=== PATIENT | male | born 1965 | race Hispanic/Latino ===

== ENCOUNTER 2018-10-15 14:26 | Emergency (ER) | payer BC, MEDICARE ==
[2018-10-15 14:26] VITALS: BMI 38.2
[2018-10-15 14:57] VITALS: O2SAT 99
--- NOTE | 2018-10-15 16:03 | C.PDOC ---
History Of Present Illness Patient is a 52 y/o male with a PMHx of schizoaffective disorder and bipolar disorder, currently residing in skilled nursing, sent in by his day center due to complaints of either right-sided back pain or right arm pain unclear on arrival. Initially upon arrival to the ED, patient is walking bent over, guarding his right side. Patient is poorly verbal on initial exam. He is unable to answer any questions. Also unable to describe complaint. Time Seen by Provider: 10/15/18 16:00 Chief Complaint (Nursing): Back Pain History Per: Patient History/Exam Limitations: other (Poorly verbal) Onset/Duration Of Symptoms: Unknown Past Medical History Reviewed: Historical Data, Nursing Documentation, Vital Signs Vital Signs: Last Vital Signs Temp 98.2 F 10/15/18 14:30 Pulse 68 10/15/18 14:30 Resp 20 10/15/18 14:30 BP 100/65 10/15/18 14:30 Pulse Ox 99 10/15/18 14:30 - Medical History PMH: Bipolar Disorder, Depression, HTN, Schizophrenia Denies: Alzheimer's Disease, Anemia, Anxiety, Arthritis, Asthma, Bronchitis, Cardia Arrhythmia, CHF, COPD, Crohn's Disease, Dementia, Diabetes, Diverticulitis, Emphysema, Fibromyalgia, Fractures, Gastrointestinal Ulcer, Gall Bladder Disease, Hepatitis, HIV, Hypercholesterolemia, Hyperthyroidism, Hypothyroidism, Kidney Stones, Migraine, Mitral Valve Prolapse, Osteoporosis, Pancreatitis, Paranoia, Parkinson's Disease, Peripheral Edema, Personality Disorder, Pneumonia, Post Traumatic Stress Disorder, Chronic Kidney Disease, Seizures, Sickle Cell Disease, Sexually Transmitted Disease, Sleep Apnea, TIA Surgical History: Denies: Appendectomy, Cholecystectomy, Coronary Stent, Pacemaker - [facility] Procedures CLOSURE SKIN & SUBCUTANEOUS NEC (07/14/04) INJECT/INFUSE NEC (10/31/06) MAGNETIC RESONANCE IMAGING OF BRAIN AND BRAIN STEM (01/01/14) MEDICATION MANAGEMENT (04/12/16) PSYCHIAT DRUG THERAP NEC (01/01/14) TETANUS TOXOID ADMINIST (10/31/06) Family History: States: Unknown Family Hx - Social History Hx Tobacco Use: No Hx Alcohol Use: No Hx Substance Use: No - Immunization History Hx Tetanus Toxoid Vaccination: No Hx Influenza Vaccination: No Hx Pneumococcal Vaccination: No Review Of Systems Review Of Systems: ROS cannot be obtained secondary to pt's inabilty to answer questions. Physical Exam - Physical Exam Appears: Non-toxic, No Acute Distress, Other (groggy appearing but responsive) Skin: Warm, Dry Head: Atraumatic, Normacephalic Eye(s): bilateral: PERRL, EOMI, Other (Pupils dilated) Oral Mucosa: Moist Neck: Normal ROM Chest: Symmetrical Cardiovascular: Rhythm Regular, No Murmur Respiratory: Normal Breath Sounds, No Accessory Muscle Use Gastrointestinal/Abdominal: Soft, No Tenderness, No Distention Back: Normal Inspection, No CVA Tenderness, No Vertebral Tenderness Extremity: Bilateral: Atraumatic, Normal Color And Temperature Pulses: Left Radial: Normal, Right Radial: Normal Neurological/Psych: Other (awake, alert, but poorly verbal on initial exam) ED Course And Treatment O2 Sat by Pulse Oximetry: 99 (RA) Pulse Ox Interpretation: Normal - Physician Consult Information Physician Contacted: Irma Maurer Outcome Of Conversation: Discussed with patients PMD and a nurse from skilled nursing, who state patient is intermittently lucid. On further evaluation, patient is speaking and denies any pain at this time. He states he occasionally has back pain. Denies any SOB, dysuria, hematuria, nausea, vomiting. Medical Decision Making Medical Decision Making: Plan: On further discussion, patient has no acute complaints and is stable for d/c back to his skilled nursing. Disposition - Disposition Disposition: HOME/ ROUTINE Disposition Time: 17:18 Condition: GUARDED Additional Instructions: Patient ambulating without difficulty in the ED. Denies pain at this time. States pain to his back "occasionally". Follow up with your primary care provider, Forms: [employer] (Ugandan), General Discharge Instructions - Clinical Impression Clinical Impression: Chronic pain disorder - Scribe Statement The provider has reviewed the documentation as recorded by the Bonita Simms Provider Attestation: All medical record entries made by the Bonita were at my direction and personally dictated by me. I have reviewed the chart and agree that the record accurately reflects my personal performance of the history, physical exam, medical decision making, and the department course for this patient. I have also personally directed, reviewed, and agree with the discharge instructions and disposition.
[2018-10-15 17:38] VITALS: BP 110/70; PULSE 70; RESP 18; TEMP 98.8
== END 2018-10-15 18:31 | disposition home or self-care (01) ==
LOC: C.ER 14:26
DX: G89.29 Other chronic pain (principal)

== ENCOUNTER 2018-11-06 13:44 | Emergency (ER) | payer MEDICARE ==
[2018-11-06 13:44] VITALS: BMI 38.2
[2018-11-06 14:19] VITALS: RESP 16; O2SAT 98
[2018-11-06] MEDS ORDERED: Sodium Chloride 0.9% 1,000 ML IV ONE ×2 (15:00→17:02)
--- NOTE | 2018-11-06 15:20 | C.PDOC ---
History Of Present Illness 53 y/o male, with history of schizoaffective disorder and bipolar disorder, is sent here from [facility], where he lives, after a suggested questionable right-sided weakness and slurred speech. On arrival, patient had equal arm and leg movements and speech is garbled but this is patients baseline. Patient looks sleepy and doesnt answer questions. Patient is a poor historian. Rest of HPI is limited. Time Seen by Provider: 11/06/18 14:44 Chief Complaint (Nursing): Weakness/Neurological Deficit History Per: Patient History/Exam Limitations: no limitations Onset/Duration Of Symptoms: Days Current Symptoms Are (Timing): Still Present Past Medical History Reviewed: Historical Data, Nursing Documentation, Vital Signs Vital Signs: Last Vital Signs Temp Pulse 78 11/06/18 14:17 Resp 16 11/06/18 14:17 BP 121/48 L 11/06/18 14:17 Pulse Ox 98 11/06/18 14:17 - Medical History PMH: Bipolar Disorder, Depression, HTN, Schizophrenia Denies: Alzheimer's Disease, Anemia, Anxiety, Arthritis, Asthma, Bronchitis, Cardia Arrhythmia, CHF, COPD, Crohn's Disease, Dementia, Diabetes, Diverticulitis, Emphysema, Fibromyalgia, Fractures, Gastrointestinal Ulcer, Gall Bladder Disease, Hepatitis, HIV, Hypercholesterolemia, Hyperthyroidism, Hypothyroidism, Kidney Stones, Migraine, Mitral Valve Prolapse, Osteoporosis, Pancreatitis, Paranoia, Parkinson's Disease, Peripheral Edema, Personality Disorder, Pneumonia, Post Traumatic Stress Disorder, Chronic Kidney Disease, Seizures, Sickle Cell Disease, Sexually Transmitted Disease, Sleep Apnea, TIA Surgical History: Denies: Appendectomy, Cholecystectomy, Coronary Stent, Pacemaker - [facility] Procedures CLOSURE SKIN & SUBCUTANEOUS NEC (07/14/04) INJECT/INFUSE NEC (10/31/06) MAGNETIC RESONANCE IMAGING OF BRAIN AND BRAIN STEM (01/01/14) MEDICATION MANAGEMENT (04/12/16) PSYCHIAT DRUG THERAP NEC (01/01/14) TETANUS TOXOID ADMINIST (10/31/06) Family History: States: No Known Family Hx - Social History Hx Tobacco Use: No Hx Alcohol Use: No Hx Substance Use: No - Immunization History Hx Tetanus Toxoid Vaccination: No Hx Influenza Vaccination: No Hx Pneumococcal Vaccination: No Review Of Systems Review Of Systems: ROS cannot be obtained secondary to pt's inabilty to answer questions. Physical Exam - Physical Exam Appears: Non-toxic, No Acute Distress Skin: Warm, Dry Head: Atraumatic, Normacephalic Eye(s): bilateral: Normal Inspection, PERRL, EOMI Oral Mucosa: Dry Neck: Supple Cardiovascular: Rhythm Regular, No Murmur Respiratory: Normal Breath Sounds, No Rales, No Rhonchi, No Wheezing Gastrointestinal/Abdominal: Soft, No Tenderness Extremity: Bilateral: Atraumatic, Normal Color And Temperature, Other (slowly moves all extremities) Neurological/Psych: Oriented x3, Other (Grasp is equal) ED Course And Treatment - Laboratory Results Result Diagrams: 11/06/18 16:28 11/06/18 16:28 Lab Interpretation: Abnormal (WBC 4.3, plt 85, BUN 24, Cr 1.1, HCO3 31, Glucose 115,) ECG: Interpreted By Ct ECG Rhythm: Sinus Rhythm ECG Interpretation: No Acute Changes O2 Sat by Pulse Oximetry: 98 (RA) Pulse Ox Interpretation: Normal - CT Scan/US Head CT Other Rad Studies (CT/US): Read By Radiologist, Radiology Report Reviewed CT/US Interpretation: FINDINGS: HEMORRHAGE: No intracranial hemorrhage. BRAIN: No mass effect or edema. 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 No evidence of acute infarct. Minimal periventricular white matter lucency adjacent to the frontal horns of the lateral ventricles consistent with chronic microvascular ischemic change. VENTRICLES: Unremarkable. No hydrocephalus. CALVARIUM: Unremarkable. PARANASAL SINUSES: Unremarkable as visualized. No significant inflammatory changes. MASTOID AIR CELLS: Unremarkable as visualized. No inflammatory changes. OTHER FINDINGS: None. IMPRESSION: No intracranial mass, hemorrhage or evidence of acute infarct. Old left thalamic lacune. Old right pontine lacune. Minimal chronic white matter ischemic change. Progress Note: Patient treated with IV fluids. Reevaluation Time: 18:02 Reassessment Condition: Improved Medical Decision Making Medical Decision Making: Plan: --Head CT --EKG --Bloodwork --IV fluids --UA Patients physical appearance is consistent when he was seen here in ER last month. Disposition Counseled Patient/Family Regarding: Studies Performed, Diagnosis, Need For Followup - Disposition Disposition: HOME/ ROUTINE Disposition Time: 18:06 Condition: IMPROVED Instructions: Dehydration, Adult (DC), Schizoaffective Disorder Forms: [employer] (Persian) - Clinical Impression Clinical Impression: Schizoaffective disorder, Mild dehydration - Scribe Statement The provider has reviewed the documentation as recorded by the Scribe Tana Stewart Provider Attestation: All medical record entries made by the Scribe were at my direction and personally dictated by me. I have reviewed the chart and agree that the record accurately reflects my personal performance of the history, physical exam, medical decision making, and the department course for this patient. I have also personally directed, reviewed, and agree with the discharge instructions and disposition.
--- NOTE | 2018-11-06 15:51 | CT ---
Date of service: 11/06/2018 PROCEDURE: CT HEAD WITHOUT CONTRAST. HISTORY: AMS COMPARISON: None available. TECHNIQUE: Axial computed tomography images were obtained through the head/brain without intravenous contrast. Radiation dose: Total exam DLP = 1002.09 mGy-cm. This CT exam was performed using one or more of the following dose reduction techniques: Automated exposure control, adjustment of the mA and/or kV according to patient size, and/or use of iterative reconstruction technique. FINDINGS: HEMORRHAGE: No intracranial hemorrhage. BRAIN: No mass effect or edema. 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 No evidence of acute infarct. Minimal periventricular white matter lucency adjacent to the frontal horns of the lateral ventricles consistent with chronic microvascular ischemic change. VENTRICLES: Unremarkable. No hydrocephalus. CALVARIUM: Unremarkable. PARANASAL SINUSES: Unremarkable as visualized. No significant inflammatory changes. MASTOID AIR CELLS: Unremarkable as visualized. No inflammatory changes. OTHER FINDINGS: None. IMPRESSION: No intracranial mass, hemorrhage or evidence of acute infarct. Old left thalamic lacune. Old right pontine lacune. Minimal chronic white matter ischemic change.
[2018-11-06 16:33] LABS: BASO % 0.3 % (0.0-2.0); EOS % 0.3 % (0.0-4.0); HEMOGLOBIN 11.3 g/dL (12.0-18.0); LYMPH # 0.7 K/uL (1.0-4.3); LYMPH % 15.4 % (20.0-40.0); MEAN CELL VOLUME 96.6 fL (80.0-94.0); MEAN CORPUSCULAR HEMOGLOBIN 33.1 pg (27.0-31.0); MEAN CORPUSCULAR HGB CONC 34.2 g/dL (33.0-37.0); MONO # 0.4 K/uL (0.0-0.8); NEUT # 3.2 K/uL (1.8-7.0); RBC 3.41 Mil/uL (4.40-5.90); RED CELL DISTRIBUTION WIDTH 13.7 % (11.5-14.5); WHITE BLOOD COUNT 4.3 K/uL (4.8-10.8)
[2018-11-06 16:57] LABS: ALB/GLOB RATIO 1.1 (1.0-2.1); ALBUMIN 3.4 g/dL (3.5-5.0); ALT/SGPT 34 U/L (21-72); AST/SGOT 55 U/L (17-59); BLOOD UREA NITROGEN 24 mg/dL (9-20); CALCIUM 8.6 mg/dl (8.6-10.4); GFR NON-AFRICAN AMERICAN > 60
[2018-11-06 17:27] LABS: SQUAMOUS EPITHIAL < 1 /hpf (0-5); URINE BILIRUBIN NEGATIVE (NEGATIVE); URINE BLOOD NEGATIVE (NEGATIVE); URINE CLARITY Clear (Clear); URINE COLOR Yellow (YELLOW); URINE GLUCOSE (UA) NORMAL (Normal); URINE LEUKOCYTE ESTERASE NEG Leu/uL (Negative); URINE PROTEIN NEGATIVE (NEGATIVE)
[2018-11-06 17:36] LABS: BARBITURATES, UR NEGATIVE (NEGATIVE); BENZODIAZEPINES, UR NEGATIVE (NEGATIVE); OPIATES, UR NEGATIVE (NEGATIVE); PHENCYCLIDINE, UR NEGATIVE (NEGATIVE)
[2018-11-06 20:37] VITALS: BP 149/77; PULSE 79
--- NOTE | 2018-11-07 23:19 | CARD ---
APPROVED REPORT Date of service: 11/06/2018 EKG Measurement Heart [id number] IN 150P62 [id number] <Conclusion> Normal sinus rhythm with sinus arrhythmia Nonspecific ST and T wave abnormality Abnormal ECG
== END 2018-11-06 19:49 | disposition home or self-care (01) ==
LOC: C.ER 13:44
DX: F25.9 Schizoaffective disorder, unspecified (principal); E86.0 Dehydration
CPT/HCPCS: 70450; 80053; 81001; 82948; 85025; 93005; 99285; G0480

== ENCOUNTER 2019-03-13 11:51 | Emergency (ER) | payer BC, MEDICARE ==
[2019-03-13 12:01] VITALS: BMI 32.3
--- NOTE | 2019-03-13 12:08 | C.PDOC ---
History Of Present Illness Patient is a 53 year old male, with a PMHx of schizoaffective disorder, who is brought in by [facility] for belligerent behavior. Upon arrival, patient is combative with staff and threatening them. Patient was recently [place] [facility] [place] Patient is restrained for his safety. <Papito Chawla - Last Filed: 03/13/19 18:23> History Per: Patient History/Exam Limitations: no limitations Suicide/Self Injury Attempted (Context): None Associated Symptoms: denies: Suicidal Thoughts, Suicidal Plan Recent travel outside of the [place]: No Additional History Per: Patient, Law Enforcement <Papito Chawla - Last Filed: 03/13/19 18:23> <Kailey Haque - Last Filed: 03/14/19 00:19> Time Seen by Provider: 03/13/19 12:00 Chief Complaint (Nursing): Psychiatric Evaluation Past Medical History Reviewed: Historical Data, Nursing Documentation, Vital Signs Vital Signs: Last Vital Signs Temp 97.6 F 03/13/19 11:57 Pulse 86 03/13/19 11:57 Resp 18 03/13/19 11:57 BP 149/89 03/13/19 11:57 Pulse Ox 100 03/13/19 11:57 - Medical History PMH: Bipolar Disorder, Depression, HTN, Hypercholesterolemia, Hyperlipidemia, Hypothyroidism, Schizophrenia Denies: Alzheimer's Disease, Anemia, Anxiety, Arthritis, Asthma, Bronchitis, Cardia Arrhythmia, CHF, COPD, Crohn's Disease, Dementia, Diabetes, Diverticulitis, Emphysema, Fibromyalgia, Fractures, Gastrointestinal Ulcer, Gall Bladder Disease, Hepatitis, HIV, Hyperthyroidism, Kidney Stones, Migraine, Mitral Valve Prolapse, Osteoporosis, Pancreatitis, Paranoia, Parkinson's Disease, Peripheral Edema, Personality Disorder, Pneumonia, Post Traumatic Stress Disorder, Chronic Kidney Disease, Seizures, Sickle Cell Disease, Sexually Transmitted Disease, Sleep Apnea, TIA Surgical History: No Surg Hx Denies: Appendectomy, Cholecystectomy, Coronary Stent, Pacemaker - [facility] Procedures CLOSURE SKIN & SUBCUTANEOUS NEC (07/14/04) INJECT/INFUSE NEC (10/31/06) MAGNETIC RESONANCE IMAGING OF BRAIN AND BRAIN STEM (01/01/14) MEDICATION MANAGEMENT (04/12/16) PSYCHIAT DRUG THERAP NEC (01/01/14) TETANUS TOXOID ADMINIST (12/27/06) Family History: States: No Known Family Hx - Social History Hx Tobacco Use: No Hx Alcohol Use: Yes (unknown what and how much) Hx Substance Use: (unknown, answers incoherantly) - Immunization History Hx Tetanus Toxoid Vaccination: No Hx Influenza Vaccination: No Hx Pneumococcal Vaccination: No <Papito Chawla - Last Filed: 03/13/19 18:23> Vital Signs: Last Vital Signs Temp 98 F 03/13/19 17:37 Pulse 70 03/13/19 17:37 Resp 18 03/13/19 17:37 BP 138/79 03/13/19 17:37 Pulse Ox 100 03/13/19 18:24 - [facility] Procedures CLOSURE SKIN & SUBCUTANEOUS NEC (07/14/04) INJECT/INFUSE NEC (10/31/06) MAGNETIC RESONANCE IMAGING OF BRAIN AND BRAIN STEM (01/01/14) MEDICATION MANAGEMENT (04/12/16) PSYCHIAT DRUG THERAP NEC (01/01/14) TETANUS TOXOID ADMINIST (10/31/06) <Kailey Haque - Last Filed: 03/14/19 00:19> Review Of Systems Except As Marked, All Systems Reviewed And Found Negative. Constitutional: Positive for: Other (belligerant behavior ) Psych: Negative for: Suicidal ideation, Other (HI) <Papito Chawla - Last Filed: 03/13/19 18:23> Physical Exam - Physical Exam Appears: Non-toxic, Other (bizarre behavior) Skin: Normal Color, Warm, Dry Head: Atraumatic, Normacephalic Oral Mucosa: Moist Neck: Normal ROM, Supple Chest: Symmetrical, No Deformity Cardiovascular: Rhythm Regular, No Murmur Respiratory: Normal Breath Sounds, No Rales, No Rhonchi, No Wheezing Gastrointestinal/Abdominal: Soft, No Tenderness Neurological/Psych: Other (nonsensible speech) <Papito Chawla - Last Filed: 03/13/19 18:23> ED Course And Treatment - Laboratory Results Result Diagrams: 03/13/19 12:40 03/13/19 12:40 ECG: Interpreted By Me, Viewed By Me ECG Rhythm: Sinus Rhythm Interpretation Of ECG: Poor tracing secondary to artifact Rate From EC O2 Sat by Pulse Oximetry: 100 (on RA) Pulse Ox Interpretation: Normal - Other Rad CXR X-Ray: Viewed By Me, Read By Radiologist Interpretation: Date of service: 03/13/2019. PROCEDURE: CHEST RADIOGRAPH, 1 VIEW. HISTORY: Detox/Psy. COMPARISON: 03/28/2016. FINDINGS: LUNGS: Clear. PLEURA: No pneumothorax or pleural fluid seen. CARDIOVASCULAR: No aortic atherosclerotic calcification present. Normal. OSSEOUS STRUCTURES: No significant abnormalities. VISUALIZED UPPER ABDOMEN: Normal. OTHER FINDINGS: None. IMPRESSION: No active disease. <Papito Chawla - Last Filed: 03/13/19 18:23> - Laboratory Results Result Diagrams: 03/13/19 12:40 03/13/19 12:40 Lab Results: Total Bilirubin 0.8 mg/dL (0.2-1.3) 03/13/19 12:40 AST 27 U/L (17-59) 03/13/19 12:40 ALT 21 U/L (21-72) D 03/13/19 12:40 Alkaline Phosphatase 83 U/L (38-126) 03/13/19 12:40 Total Protein 7.9 g/dL (6.3-8.3) 03/13/19 12:40 Albumin 4.4 g/dL (3.5-5.0) 03/13/19 12:40 Globulin 3.5 gm/dL (2.2-3.9) 03/13/19 12:40 Albumin/Globulin Ratio 1.3 (1.0-2.1) 03/13/19 12:40 Urine Color Straw (YELLOW) 03/13/19 12:52 Urine Clarity Clear (Clear) 03/13/19 12:52 Urine pH 7.0 (5.0-8.0) 03/13/19 12:52 Ur Specific [place] 1.003 (1.003-1.030) 03/13/19 12:52 Urine Protein Negative mg/dL (NEGATIVE) 03/13/19 12:52 Urine Glucose (UA) Normal mg/dL (Normal) 03/13/19 12:52 Urine Ketones Negative mg/dL (NEGATIVE) 03/13/19 12:52 Urine Blood Negative (NEGATIVE) 03/13/19 12:52 Urine Nitrate Negative (NEGATIVE) 03/13/19 12:52 Urine Bilirubin Negative (NEGATIVE) 03/13/19 12:52 Urine Urobilinogen Normal mg/dL (0.2-1.0) 03/13/19 12:52 Ur Leukocyte Esterase Neg Az/uL (Negative) 03/13/19 12:52 Urine RBC (Auto) < 1 /hpf (0-3) 03/13/19 12:52 Ur Squamous Epith Cells < 1 /hpf (0-5) 03/13/19 12:52 <Kailey Haque - Last Filed: 03/14/19 00:19> Medical Decision Making Medical Decision Making: pending medical clearance. Plan: EKG Labs CXR UA Ativan 2mg IM Geodon 20mg IM 13:06. Patient is medically cleared. 1800:[place] [facility] [place] [facility] [place]: pt signed out dr solis [place] [facility] [place]reassess, final dispo. repeat ekg (inital one artifact), nsr [address] t wave changes normal intervals <Papito Chawla - Last Filed: 03/13/19 18:23> Disposition - Disposition Disposition Time: 19:00 <Papito Chawla - Last Filed: 03/13/19 18:23> <Kailey Haque - Last Filed: 03/14/19 00:19> - Disposition Condition: STABLE Forms: [employer] (Tajik) - Clinical Impression Clinical Impression: Schizophrenia - Scribe Statement The provider has reviewed the documentation as recorded by the Scribchey Bonilla All medical record entries made by the Scribe were at my direction and personally dictated by me. I have reviewed the chart and agree that the record accurately reflects my personal performance of the history, physical exam, medical decision making, and the department course for this patient. I have also personally directed, reviewed, and agree with the discharge instructions and disposition. <Papito Chawla - Last Filed: 03/13/19 18:23> Addendum Addendum: 03/13/19 21:05 Patient resting comfortably. He has been [place] [facility] [place] - pending bed. 03/14/19 00:19 Bed available at [facility] pending transfer. <Kailey Haque - Last Filed: 03/14/19 00:19>
--- NOTE | 2019-03-13 12:19 | RAD ---
Date of service: 03/13/2019 PROCEDURE: CHEST RADIOGRAPH, 1 VIEW HISTORY: Detox/Psy COMPARISON: 03/28/2016 FINDINGS: LUNGS: Clear. PLEURA: No pneumothorax or pleural fluid seen. CARDIOVASCULAR: No aortic atherosclerotic calcification present. Normal. OSSEOUS STRUCTURES: No significant abnormalities. VISUALIZED UPPER ABDOMEN: Normal. OTHER FINDINGS: None. IMPRESSION: No active disease.
[2019-03-13 12:45] LABS: EOS % 0.4 % (0.0-4.0); LYMPH # 0.9 K/uL (1.0-4.3); LYMPH % 27.3 % (20.0-40.0); MEAN CORPUSCULAR HEMOGLOBIN 31.8 pg (27.0-31.0); MEAN CORPUSCULAR HGB CONC 34.3 g/dL (33.0-37.0); MONO # 0.2 K/uL (0.0-0.8); MONO % 7.7 % (0.0-10.0); NEUT % 63.6 % (50.0-75.0); NRBC % 0.2 % (0.0-2.0); RBC 4.42 Mil/uL (4.40-5.90); RED CELL DISTRIBUTION WIDTH 12.8 % (11.5-14.5); WHITE BLOOD COUNT 3.1 K/uL (4.8-10.8)
[2019-03-13 12:46] LABS: HEMOGLOBIN 14.1 g/dL (12.0-18.0); MEAN CELL VOLUME 92.8 fL (80.0-94.0)
[2019-03-13 12:58] LABS: SQUAMOUS EPITHIAL < 1 /hpf (0-5); URINE BILIRUBIN NEGATIVE (NEGATIVE); URINE BLOOD NEGATIVE (NEGATIVE); URINE CLARITY Clear (Clear); URINE COLOR Straw (YELLOW); URINE GLUCOSE (UA) NORMAL (Normal); URINE LEUKOCYTE ESTERASE NEG Leu/uL (Negative); URINE PROTEIN NEGATIVE (NEGATIVE); URINE UROBILINOGEN NORMAL mg/dL (0.2-1.0)
[2019-03-13 12:58] LABS: ACETAMINOPHEN < 10.0 ug/mL (10.0-30.0); ALB/GLOB RATIO 1.3 (1.0-2.1); ALBUMIN 4.4 g/dL (3.5-5.0); ALT/SGPT 21 U/L (21-72); AST/SGOT 27 U/L (17-59); BLOOD UREA NITROGEN 9 mg/dL (9-20); CALCIUM 9.3 mg/dl (8.6-10.4); GFR NON-AFRICAN AMERICAN > 60; SALICYLATE < 1.0 {null, mg/dL 1}
[2019-03-13 13:13] LABS: BARBITURATES, UR NEGATIVE (NEGATIVE); BENZODIAZEPINES, UR NEGATIVE (NEGATIVE); OPIATES, UR NEGATIVE (NEGATIVE); PHENCYCLIDINE, UR NEGATIVE (NEGATIVE)
--- NOTE | 2019-03-13 16:06 | CARD ---
APPROVED REPORT Date of service: 03/13/2019 EKG Measurement Heart [id number] NM 150P49 [id number] <Conclusion> Normal sinus rhythm Normal ECG
[2019-03-13 23:52] VITALS: O2SAT 100
[2019-03-14 02:07] VITALS: BP 112/63; PULSE 68; RESP 20; TEMP 97.5
--- NOTE | 2019-03-14 14:36 | CARD ---
APPROVED REPORT Date of service: 03/13/2019 EKG Measurement Heart [id number] WI 158P48 [id number] <Conclusion> Normal sinus rhythm Possible Inferior infarct, age undetermined Abnormal ECG
== END 2019-03-14 02:35 | disposition short-term general hospital (02) ==
LOC: C.ER 11:51
DX: F20.9 Schizophrenia, unspecified (principal); E78.00 Pure hypercholesterolemia, unspecified; E03.9 Hypothyroidism, unspecified; I10 Essential (primary) hypertension; E78.5 Hyperlipidemia, unspecified
CPT/HCPCS: 71045; 80053; 81001; 83735; 84100; 85025; 93005; 96372; 99285; G0480; J2060; J3486